=== PATIENT | male | born 1940 | race Caucasian/White ===

== ENCOUNTER 2022-07-20 21:03 | Inpatient (IN) | payer MEDICARE, BC ==
[~2022-07-20] VITALS: Ht 182.9 cm; Wt 89.4 kg
[2022-07-20 22:50] VITALS: BP 112/71
--- NOTE | 2022-07-20 23:50 | NUR ---
Admitted patient from [facility], in our Tele floor under the care of Dr Elliott, patient alert oriented, able to answer all admission question, no sob no chest pain, tele monitor sinus tachy 105, room air, elder cath patent draining with yellow color urine in moderate amount, iv heploc on left forearm, skin intact, no complain of pain, cont to monitor.
[2022-07-21] MEDS ORDERED: MELATONIN 3 MG TABLET PO PRN (00:30)
[2022-07-21] MEDS ORDERED: ONDANSETRON 4 MG/2 ML VIAL IV PRN (00:30)
[2022-07-21] MEDS ORDERED: DOCUSATE SODIUM 100 MG CAPSULE PO PRN (00:30)
[2022-07-21] MEDS ORDERED: MAGNESIUM HYDROXIDE 30 ML LIQUID UDC PO PRN (00:30)
[2022-07-21] MEDS ORDERED: PIPERACILLIN/TAZOBACTAM/D5W 50 ML IV ONE (01:06)
[2022-07-21 01:13] LABS: HEMATOCRIT 43.9 % (36.7-47.1); MEAN CORPUSCULAR HEMOGLOBIN 29.4 uug (23.8-33.4); PLATELET COUNT (AUTO) 186 K/uL (152-348)
[2022-07-21] MEDS ORDERED: PIPERACILLIN SODIUM/TAZOBACTAM 3.375 G in IV DEXTROSE 5% 50 ML IV ONE (01:15)
[2022-07-21 01:48] LABS: CARBON DIOXIDE 25 mmol/L (21-32); CHLORIDE 105 mmol/L (98-107); CREATININE 3.6 mg/dL (0.6-1.3); GLUCOSE 172 mg/dL (74-106); POTASSIUM 3.7 mmol/L (3.5-5.1); UREA NITROGEN, BLOOD 58 mg/dL (7-18)
[2022-07-21] MEDS: ACETAMINOPHEN 325 MG TABLET PO PRN ×2 (01:49→05:57)
[2022-07-21 01:51] LABS: IRON, SERUM 20 ug/dL (50-175)
[2022-07-21 01:57] LABS: PHOSPHOROUS 4.1 mg/dL (2.5-4.9)
[2022-07-21 02:00] LABS: MAGNESIUM 1.9 mg/dL (1.8-2.4)
[2022-07-21 02:37] LABS: *BILIRUBIN,URIN NEGATIVE (NEGATIVE); *BLOOD, URINE 3+ (NEGATIVE); *CLARITY,URINE CLOUDY (CLEAR); *COLOR,URINE YELLOW (YELLOW); *KETONES,URINE NEGATIVE (NEGATIVE); *UROBILINOGEN,URINE 0.2 E.U./dl (NORMAL); LEUKOCYTE ESTERASE ,URINE 1+ (NEGATIVE); NITRITE, URINE NEGATIVE (NEGATIVE)
[2022-07-21 02:59] LABS: UGLUCOSE 3+ (NEGATIVE)
[2022-07-21 03:22] LABS: BACTERIA,URINE FEW /HPF (NONE SEEN); SQUAMOUS EPITHELIAL CELL,UR FEW /HPF (NONE SEEN)
[2022-07-21 03:38] LABS: RBC,URINE 50-80 /HPF (0-3); WBC,URINE 50-80 /HPF (0-3)
[2022-07-21 04:00] VITALS: BP 132/64
[2022-07-21 04:26] LABS: BILIRUBIN,DIRECT 0.5 mg/dL (0.0-0.2)
--- NOTE | 2022-07-21 06:40 | NUR ---
Patient has temp of 100.6 axillary given tylenol 650mg, plus cooling measures, elder cath patent draining with pale yellow urine in moderate amount, cont abx for uti, cont to monitor, sinus tachy on tele.
[2022-07-21 08:37] VITALS: BP 91/60
[2022-07-21] MEDS ORDERED: ASPIRIN 325 MG TABLET PO SCH (09:00)
[2022-07-21] MEDS ORDERED: ASPIRIN 81 MG TAB.CHEW PO SCH (09:00)
[2022-07-21] MEDS: ATENOLOL 25 MG TABLET PO SCH ×2 (09:10→17:14)
[2022-07-21] MEDS: FUROSEMIDE 20 MG TABLET PO SCH (09:11)
[2022-07-21 12:00] VITALS: BP 98/56
[2022-07-21] MEDS: PIPERACILLIN SODIUM/TAZOBACTAM 3.375 G in IV DEXTROSE 5% 100 ML IV SCH (13:00)
--- NOTE | 2022-07-21 13:21 | NUR ---
Dr Elliott made aware of patient one episode of V-Tach at this time order to monitor patient for now.
[2022-07-21] MEDS ORDERED: PIPERACILLIN SODIUM/TAZOBACTAM 3.375 G in IV DEXTROSE 5% 50 ML IV SCH (14:00)
[2022-07-21] MEDS ORDERED: ROSU10TA2 PO (14:55)
[2022-07-21] MEDS ORDERED: ALOG6.252 PO (14:55)
[2022-07-21] MEDS ORDERED: PREG225C7 PO (14:55)
[2022-07-21] MEDS ORDERED: OMEP40CA21 PO (14:55)
[2022-07-21] MEDS ORDERED: TICA90TA PO (14:55)
[2022-07-21] MEDS ORDERED: ASPI81TA31 PO (14:55)
[2022-07-21] MEDS ORDERED: MEMA5TAB42 PO (14:55)
[2022-07-21] MEDS ORDERED: CHOL1CRY2 MC (14:55)
[2022-07-21] MEDS ORDERED: METF-440 PO ×2 (14:55)
[2022-07-21 16:00] VITALS: BP 105/68
--- NOTE | 2022-07-21 19:28 | NUR ---
I called Ms Albright isaiah about metoprolol dose with no answer left voicemail to call back.
--- NOTE | 2022-07-21 19:30 | NUR ---
Received patient lying in bed. Appears weak and lethargic. Non-verbally responsive to tactile stimuli only. Keeps his eyes closed. In no apparent distress. No signs or symptoms of pain or SOB. PIV on left AC intact and patent. Costello catheter intact and draining via gravity. Safety measure initiated and call light within reached.
[2022-07-21 20:00] VITALS: BP_SYST 100; BP_SYST 120; BP_DIAS 53; BP_DIAS 54
[2022-07-21] MEDS: ATORVASTATIN 20 MG TABLET PO SCH (20:28)
--- NOTE | 2022-07-21 20:34 | NUR ---
Noted order for IVF, verify with Dr Elliott as patient is on a fluid restriction of 800ml per day. Dr Elliott with verbal order to discontinue fluid restriction. Order carried out.
[2022-07-21] MEDS ORDERED: FLUCONAZOLE 200 MG/100 ML PIGGYBACK ONE (20:39)
[2022-07-21] MEDS: IV NS 1000 ML 1,000 ML IV SCH (20:57)
[2022-07-21] MEDS: FLUCONAZOLE 200 MG/NS 100ML IV 200 MG in PREMIXED 1 EACH IV SCH (20:57)
[2022-07-22] VITALS: BP 90/50
[2022-07-22 04:22] VITALS: BP 93/49
--- NOTE | 2022-07-22 05:27 | NUR ---
No adverse effect noted from IV antibiotic. IVF infusing. NSR on tele with HR of 90/min. Costello catheter intact and draining via gravity. Needs anticipated to and met. Turned and reposition for comfort. Safety measure maintained and call light within reached.
[2022-07-22] MEDS: PANTOPRAZOLE SODIUM 40 MG TABLET.DR PO SCH (06:06)
[2022-07-22 07:16] LABS: HEMATOCRIT 38.3 % (36.7-47.1); MEAN CORPUSCULAR HEMOGLOBIN 29.9 uug (23.8-33.4); MEAN CORPUSCULAR VOLUME 88.8 fL (73.0-96.2); PLATELET COUNT (AUTO) 170 K/uL (152-348)
[2022-07-22 07:42] LABS: CARBON DIOXIDE 23 mmol/L (21-32); CHLORIDE 112 mmol/L (98-107); CREATININE 4.2 mg/dL (0.6-1.3); GLUCOSE 218 mg/dL (74-106); MAGNESIUM 2.3 mg/dL (1.8-2.4); PHOSPHOROUS 5.6 mg/dL (2.5-4.9); POTASSIUM 3.5 mmol/L (3.5-5.1); UREA NITROGEN, BLOOD 77 mg/dL (7-18)
[2022-07-22 08:00] VITALS: BP 92/55
[2022-07-22] MEDS: MEMANTINE HCL 5 MG TABLET PO SCH ×2 (08:57→17:12)
[2022-07-22] MEDS: FUROSEMIDE 20 MG TABLET PO SCH (08:57)
[2022-07-22] MEDS ORDERED: ASPIRIN 81 MG TAB.CHEW PO SCH (09:00)
[2022-07-22] MEDS: ATENOLOL 25 MG TABLET PO SCH ×2 (09:00→17:00)
[2022-07-22] MEDS ORDERED: METFORMIN HCL 500 MG TABLET PO SCH (09:00)
[2022-07-22] MEDS: LINAGLIPTIN 5 MG TABLET PO SCH (09:02)
[2022-07-22] MEDS: PREGABALIN 50 MG CAPSULE PO SCH ×2 (09:02→17:12)
[2022-07-22] MEDS: CHOLECALCIFEROL 1,000 UNIT TABLET PO SCH (09:02)
[2022-07-22] MEDS: SOD FERRIC GLUC COMPLX/SUCROSE 125 MG in IV NORMAL SALINE 100 ML IV SCH (10:45)
[2022-07-22] MEDS ORDERED: TICAGRELOR 90 MG TABLET PO SCH (11:00)
[2022-07-22] MEDS: PIPERACILLIN SODIUM/TAZOBACTAM 3.375 G in IV DEXTROSE 5% 100 ML IV SCH ×3 (12:05)
--- NOTE | 2022-07-22 14:18 | NUR ---
Received order from Dr. Elliott for nephrostomy tube placement. Blood thinners (Aspirin and Brilinta) are on hold due to procedure in AM.
[2022-07-22 16:00] VITALS: BP 93/60
[2022-07-22] MEDS ORDERED: ALBUMIN HUMAN 5% 250 ML IV ONE (17:00)
[2022-07-22] MEDS ORDERED: VANCOMYCIN IV 1,250 MG in IV DEXTROSE 5% 250 ML IV ONE (18:00)
--- NOTE | 2022-07-22 18:24 | NUR ---
Pt. is in bed and resting at this time. Compliance with the care given. All safety measure applied. All need attended and met. No c/o pain. No acute distress noted. Will keep monitoring the patient.
--- NOTE | 2022-07-22 19:25 | NUR ---
Pt is noted in bed responsive and can be forgetful with call light in reach and fall precautions in place as report is received from the off going nurse. Sinus Rhythm on the Tele monitor, Diminished Lungs sound with skin dry, warm and intact. Pt care continue with IVF and Antibiotic therapy in progress with Positive Blood Cultures and Pt will be NPO after Midline for possible XR-Nephrostomy Tube Placement in AM and he is S/O CTA Abdominal and Pelvis and he will be monitor closely.
[2022-07-22 20:00] VITALS: BP 91/61
[2022-07-22] MEDS: IV NS 1000 ML 1,000 ML IV SCH (20:30)
[2022-07-22] MEDS: ATORVASTATIN 20 MG TABLET PO SCH (20:41)
[2022-07-22] MEDS: FLUCONAZOLE 200 MG/NS 100ML IV 200 MG in PREMIXED 1 EACH IV SCH (20:41)
[2022-07-23] VITALS: BP_SYST 100; BP_SYST 91; BP_DIAS 60; BP_DIAS 61
--- NOTE | 2022-07-23 00:05 | NUR ---
Pt remain full code with call light in reach and fall precaution sin place as he is been turn and reposition Q2HRS for comfort. Pt is NPO for possible XR-Nephrostomy Tube placement in AM with IVF 0.9NS at 40ML/HR. Pt care continue.
[2022-07-23] MEDS: PIPERACILLIN SODIUM/TAZOBACTAM 3.375 G in IV DEXTROSE 5% 100 ML IV SCH ×3 (02:07→20:38)
[2022-07-23 04:00] VITALS: BP 99/66
--- NOTE | 2022-07-23 05:07 | NUR ---
Pt is sleeping after AM and wound care done with no S/S off distress as he remain full code and NPO with IVF therapy in progress for possible B-H-Gczutmzpfka Tube Placement these AM. Pt care continue .
[2022-07-23] MEDS: PANTOPRAZOLE SODIUM 40 MG TABLET.DR PO SCH (06:57)
[2022-07-23 07:09] LABS: HEMATOCRIT 40.5 % (36.7-47.1); MEAN CORPUSCULAR HEMOGLOBIN 29.7 uug (23.8-33.4); MEAN CORPUSCULAR VOLUME 89.4 fL (73.0-96.2); PLATELET COUNT (AUTO) 158 K/uL (152-348)
[2022-07-23 07:35] LABS: CARBON DIOXIDE 26 mmol/L (21-32); CHLORIDE 111 mmol/L (98-107); CREATININE 3.2 mg/dL (0.6-1.3); GLUCOSE 143 mg/dL (74-106); MAGNESIUM 2.2 mg/dL (1.8-2.4); PHOSPHOROUS 4.5 mg/dL (2.5-4.9); POTASSIUM 3.4 mmol/L (3.5-5.1); UREA NITROGEN, BLOOD 76 mg/dL (7-18)
--- NOTE | 2022-07-23 07:35 | NUR ---
Pt care continue as report is given to the AM receiving nurse.
[2022-07-23] MEDS: MEMANTINE HCL 5 MG TABLET PO SCH ×2 (08:28→17:16)
[2022-07-23] MEDS: PREGABALIN 50 MG CAPSULE PO SCH ×2 (08:28→17:16)
[2022-07-23] MEDS: CHOLECALCIFEROL 1,000 UNIT TABLET PO SCH (08:28)
[2022-07-23] MEDS: LINAGLIPTIN 5 MG TABLET PO SCH (08:28)
[2022-07-23] MEDS: FUROSEMIDE 20 MG TABLET PO SCH ×2 (08:28→08:34)
[2022-07-23] MEDS: ATENOLOL 25 MG TABLET PO SCH ×2 (08:35→17:17)
[2022-07-23] MEDS: SOD FERRIC GLUC COMPLX/SUCROSE 125 MG in IV NORMAL SALINE 100 ML IV SCH (09:48)
[2022-07-23] MEDS ORDERED: VANCOMYCIN IV 500 MG in IV DEXTROSE 5% 100 ML IV ONE (11:00)
[2022-07-23 12:00] VITALS: BP 101/69
[2022-07-23] MEDS ORDERED: POTASSIUM CHLORIDE 10 MEQ TAB.PRT.SR PO ONE (12:00)
--- NOTE | 2022-07-23 12:03 | NUR ---
Pt. has order for nephrostomy tube placement and according to Radiologist pt. needs to be 4 to 5 days off of blood thinners. Reported to Dr. Elliott and will keep the blood thinners on hold till further order from .
[2022-07-23] MEDS: POTASSIUM CHLORIDE 50 ML IV SCH ×3 (15:24→17:29)
[2022-07-23 16:00] VITALS: BP 102/61
--- NOTE | 2022-07-23 17:48 | NUR ---
Pt. has been stable through out the shift. Compliance with the care given. No c/o pain. Bed in low position. Yellow color urine noted in Costello cath bag. Will keep monitoring the patient.
--- NOTE | 2022-07-23 19:30 | NUR ---
Received patient lying in bed. Family at bedside. AAOx2-3. In no apparent distress. No signs or symptoms of pain or SOB. PIV on right hand intact and patent. IVF infusing. Costello catheter intact and draining via gravity. Safety measure initiated and call light within reached.
[2022-07-23 20:00] VITALS: BP 110/68
[2022-07-23] MEDS: FLUCONAZOLE 100 MG TABLET PO SCH (20:39)
[2022-07-23] MEDS: ATORVASTATIN 20 MG TABLET PO SCH (20:39)
[2022-07-23] MEDS: IV NS 1000 ML 1,000 ML IV SCH (20:42)
[2022-07-23] MEDS ORDERED: FLUCONAZOLE 200 MG/NS 100ML IV 100 MG in PREMIXED 1 EACH IV SCH (21:00)
[2022-07-24] VITALS: BP 104/67
[2022-07-24] MEDS: PIPERACILLIN SODIUM/TAZOBACTAM 3.375 G in IV DEXTROSE 5% 100 ML IV SCH ×3 (03:14→20:52)
[2022-07-24 04:00] VITALS: BP 98/65
--- NOTE | 2022-07-24 05:17 | NUR ---
No adverse reaction noted from IV antibiotic. IVF infusing. NSR on tele with HR of 63/min. Costello catheter intact and draining via gravity. Needs anticipated to and met. Safety measure maintained and call light within reached.
[2022-07-24] MEDS: PANTOPRAZOLE SODIUM 40 MG TABLET.DR PO SCH (06:11)
[2022-07-24 07:15] LABS: HEMATOCRIT 40.4 % (36.7-47.1); MEAN CORPUSCULAR HEMOGLOBIN 29.3 uug (23.8-33.4); MEAN CORPUSCULAR VOLUME 89.1 fL (73.0-96.2); PLATELET COUNT (AUTO) 132 K/uL (152-348)
[2022-07-24 07:35] LABS: CARBON DIOXIDE 24 mmol/L (21-32); CHLORIDE 108 mmol/L (98-107); CREATININE 2.4 mg/dL (0.6-1.3); GLUCOSE 141 mg/dL (74-106); PHOSPHOROUS 4.4 mg/dL (2.5-4.9); UREA NITROGEN, BLOOD 63 mg/dL (7-18)
[2022-07-24] MEDS: CHOLECALCIFEROL 1,000 UNIT TABLET PO SCH (08:58)
[2022-07-24] MEDS: LINAGLIPTIN 5 MG TABLET PO SCH (08:58)
[2022-07-24] MEDS: MEMANTINE HCL 5 MG TABLET PO SCH ×2 (08:58→17:03)
[2022-07-24] MEDS: PREGABALIN 50 MG CAPSULE PO SCH ×2 (08:59→17:03)
[2022-07-24] MEDS: FUROSEMIDE 20 MG TABLET PO SCH (08:59)
[2022-07-24] MEDS ORDERED: POTASSIUM CHLORIDE 20 MEQ TAB.PRT.SR PO ONE ×3 (09:00→18:00)
[2022-07-24] MEDS ORDERED: VANCOMYCIN IV 1,000 MG in IV DEXTROSE 5% 250 ML IV ONE (09:00)
[2022-07-24] MEDS: ATENOLOL 25 MG TABLET PO SCH ×2 (09:00→17:00)
--- NOTE | 2022-07-24 09:35 | NUR ---
Noted patient having low blood pressure of 95/60 and HR 72. Reported to Dr. Elliott. Atenolol was hold and received order to Give NS 500ml bolus. Orders followed and will keep monitoring the patient.
[2022-07-24] MEDS: SOD FERRIC GLUC COMPLX/SUCROSE 125 MG in IV NORMAL SALINE 100 ML IV SCH (10:27)
[2022-07-24] MEDS ORDERED: IV NORMAL SALINE 500 ML BAG IV ONE (11:00)
[2022-07-24] MEDS ORDERED: IV NORMAL SALINE 500 ML IV ONE (11:15)
[2022-07-24] MEDS: GLUCERNA SHAKE 237 ML CAN PO SCH ×2 (12:21→17:04)
[2022-07-24] MEDS ORDERED: POTASSIUM CHLORIDE 10 MEQ TAB.PRT.SR PO ONE (14:00)
--- NOTE | 2022-07-24 18:28 | NUR ---
Pt. noted to be stable through out the shift. No c/o pain. Pt. was kept clean and dry. All need attended and met. Noted. Yellow color urine noted in the Costello cath bag. Will keep monitoring the patient.
[2022-07-24 20:29] VITALS: BP 95/60
[2022-07-24] MEDS: ATORVASTATIN 20 MG TABLET PO SCH (20:53)
[2022-07-24] MEDS: FLUCONAZOLE 100 MG TABLET PO SCH (20:53)
[2022-07-24] MEDS: IV NS 1000 ML 1,000 ML IV SCH (20:53)
[2022-07-25 00:53] VITALS: BP 97/60
[2022-07-25] MEDS: PIPERACILLIN SODIUM/TAZOBACTAM 3.375 G in IV DEXTROSE 5% 100 ML IV SCH ×3 (04:26→20:38)
[2022-07-25 04:37] VITALS: BP 111/71
[2022-07-25 05:20] LABS: HEMATOCRIT 40.2 % (36.7-47.1); MEAN CORPUSCULAR HEMOGLOBIN 29.2 uug (23.8-33.4); MEAN CORPUSCULAR VOLUME 87.9 fL (73.0-96.2); PLATELET COUNT (AUTO) 132 K/uL (152-348)
[2022-07-25 05:51] LABS: CARBON DIOXIDE 24 mmol/L (21-32); CHLORIDE 110 mmol/L (98-107); CREATININE 1.9 mg/dL (0.6-1.3); GLUCOSE 126 mg/dL (74-106); MAGNESIUM 1.8 mg/dL (1.8-2.4); PHOSPHOROUS 3.1 mg/dL (2.5-4.9); POTASSIUM 3.4 mmol/L (3.5-5.1); UREA NITROGEN, BLOOD 48 mg/dL (7-18)
[2022-07-25] MEDS: PANTOPRAZOLE SODIUM 40 MG TABLET.DR PO SCH (06:05)
--- NOTE | 2022-07-25 08:00 | NUR ---
PT alert and oriented x 2/3 forgetful at times. Reorient pt to place. Bed alarm on - fall precaution implemented. Pt agreeable with plan of care. Aspiration precaution implemented. HOB elevated during breakfast. No coughing noted during feed. Pt is in no acute distress. Call light is within reach.
[2022-07-25] MEDS: MEMANTINE HCL 5 MG TABLET PO SCH ×2 (08:48→17:52)
[2022-07-25] MEDS: PREGABALIN 50 MG CAPSULE PO SCH ×2 (08:48→17:52)
[2022-07-25] MEDS: FUROSEMIDE 20 MG TABLET PO SCH (08:48)
[2022-07-25] MEDS: CHOLECALCIFEROL 1,000 UNIT TABLET PO SCH (08:48)
[2022-07-25] MEDS: LINAGLIPTIN 5 MG TABLET PO SCH (08:48)
[2022-07-25] MEDS: ATENOLOL 25 MG TABLET PO SCH ×2 (08:55→17:00)
[2022-07-25] MEDS: GLUCERNA SHAKE 237 ML CAN PO SCH ×3 (09:00→17:52)
[2022-07-25] MEDS ORDERED: VANCOMYCIN IV 1,000 MG in IV DEXTROSE 5% 250 ML IV ONE (09:00)
[2022-07-25 11:49] VITALS: BP 99/58
[2022-07-25] MEDS: SOD FERRIC GLUC COMPLX/SUCROSE 125 MG in IV NORMAL SALINE 100 ML IV SCH (11:55)
[2022-07-25] MEDS ORDERED: POTASSIUM CHLORIDE 20 MEQ TAB.PRT.SR PO ONE ×3 (12:00→20:00)
[2022-07-25 16:05] VITALS: BP 105/70
--- NOTE | 2022-07-25 18:00 | NUR ---
No fall noted. Fall precaution implemented.
[2022-07-25] MEDS: ATORVASTATIN 20 MG TABLET PO SCH (20:38)
[2022-07-25] MEDS: FLUCONAZOLE 100 MG TABLET PO SCH (20:38)
[2022-07-25 20:40] VITALS: BP 102/62
[2022-07-26 00:16] VITALS: BP 95/58
[2022-07-26] MEDS: PIPERACILLIN SODIUM/TAZOBACTAM 3.375 G in IV DEXTROSE 5% 100 ML IV SCH ×3 (03:57→20:14)
[2022-07-26 04:11] VITALS: BP 100/62
[2022-07-26] MEDS: PANTOPRAZOLE SODIUM 40 MG TABLET.DR PO SCH (06:34)
[2022-07-26 06:52] LABS: HEMATOCRIT 38.9 % (36.7-47.1); MEAN CORPUSCULAR HEMOGLOBIN 29.2 uug (23.8-33.4); MEAN CORPUSCULAR VOLUME 88.5 fL (73.0-96.2); PLATELET COUNT (AUTO) 121 K/uL (152-348)
[2022-07-26 07:27] LABS: CARBON DIOXIDE 24 mmol/L (21-32); CHLORIDE 108 mmol/L (98-107); CREATININE 1.8 mg/dL (0.6-1.3); GLUCOSE 145 mg/dL (74-106); MAGNESIUM 1.8 mg/dL (1.8-2.4); PHOSPHOROUS 2.7 mg/dL (2.5-4.9); POTASSIUM 3.7 mmol/L (3.5-5.1); UREA NITROGEN, BLOOD 38 mg/dL (7-18)
--- NOTE | 2022-07-26 07:29 | NUR ---
REPORT GIVEN TO BELTRAN HOMER
[2022-07-26] MEDS ORDERED: VANCOMYCIN IV 1,000 MG in IV DEXTROSE 5% 250 ML IV ONE (09:00)
[2022-07-26] MEDS: GLUCERNA SHAKE 237 ML CAN PO SCH ×3 (09:04→18:26)
[2022-07-26] MEDS: FUROSEMIDE 20 MG TABLET PO SCH (09:04)
[2022-07-26] MEDS: LINAGLIPTIN 5 MG TABLET PO SCH (09:04)
[2022-07-26] MEDS: MEMANTINE HCL 5 MG TABLET PO SCH ×2 (09:04→18:26)
[2022-07-26] MEDS: PREGABALIN 50 MG CAPSULE PO SCH ×2 (09:04→18:26)
[2022-07-26] MEDS: CHOLECALCIFEROL 1,000 UNIT TABLET PO SCH (09:04)
[2022-07-26] MEDS: ATENOLOL 25 MG TABLET PO SCH ×2 (09:07→17:00)
[2022-07-26] MEDS: IV NS 1000 ML 1,000 ML IV SCH (09:19)
[2022-07-26 11:27] VITALS: BP 96/62
[2022-07-26 15:16] VITALS: BP 101/64
--- NOTE | 2022-07-26 18:30 | NUR ---
CM set up pt for pick up operator @900 tomorrow as procedure for right nephostomy tube insertion to be done at [facility] @1000. Consent received. Pt is in no acute distress. Call light is within reach.
--- NOTE | 2022-07-26 19:30 | NUR ---
Received patient lying in bed. Asleep but arousable to verbal stimuli. In no apparent distress. No signs or symptoms of pain or SOB. NSR on tele with HR of 74/min. IV on right hand intact and patent. IVF infusing. Costello catheter intact and draining via gravity. Safety measure initiated and call light within reached.
[2022-07-26 20:00] VITALS: BP 108/61
[2022-07-26] MEDS: ATORVASTATIN 20 MG TABLET PO SCH (20:14)
[2022-07-26] MEDS: FLUCONAZOLE 200 MG TABLET PO SCH (20:14)
--- NOTE | 2022-07-26 22:53 | NUR ---
Telephone call from Dr Myers find out if patient already had nephrostomy tube insertion done. Informed that is is schedule for lorrie. Dr. Elliott with order to place patient NPO after midnight except medication. Order noted and will carry out.
[2022-07-27] VITALS: BP 92/65
[2022-07-27] MEDS: IV NS 1000 ML 1,000 ML IV PRN (02:00)
[2022-07-27] MEDS: PIPERACILLIN SODIUM/TAZOBACTAM 3.375 G in IV DEXTROSE 5% 100 ML IV SCH ×3 (03:45→23:10)
[2022-07-27 04:00] VITALS: BP 105/67
--- NOTE | 2022-07-27 05:33 | NUR ---
Slept through out the night. In no acute distress. No side effect noted from IV antibiotics. NSR on tele with Hr of 79/min. Costello catheter intact and draining via gravity. Needs assessed and attended to. Safety measure maintained and call light within reached.
[2022-07-27] MEDS: PANTOPRAZOLE SODIUM 40 MG TABLET.DR PO SCH (06:10)
[2022-07-27] MEDS: GLUCERNA SHAKE 237 ML CAN PO SCH ×3 (08:00→16:53)
--- NOTE | 2022-07-27 08:00 | NUR ---
RECEIVED PATIENT IN BED AWAKE ALERT AND ORIENTED PATIENT IS NOTHING BY MOUTH PENDING RIGHT NEPHROSTOMY TUBE INSERTION SCHEDULED THIS MORNING AT WHEELING.ON ROOM AIR WITH NO SHORTNESS OF BREATH MANCUSO CATH TO GRAVITY DRAINAGE.DENIES PAIN OR DISCOMFORTS AT THIS TIME.CALL LIGHT AND PERSONAL BELONGINGS ARE WITHIN EASY REACH MADE COMFORTABLE WILL CONTINUE TO OBSERVE.
[2022-07-27] MEDS: FUROSEMIDE 20 MG TABLET PO SCH (09:00)
[2022-07-27] MEDS: ATENOLOL 25 MG TABLET PO SCH ×2 (09:00→16:40)
[2022-07-27] MEDS ORDERED: VANCOMYCIN IV 1,000 MG in IV DEXTROSE 5% 250 ML IV ONE ×2 (09:00→14:00)
[2022-07-27] MEDS: PREGABALIN 50 MG CAPSULE PO SCH ×2 (09:00→16:39)
[2022-07-27] MEDS: MEMANTINE HCL 5 MG TABLET PO SCH ×2 (09:00→16:39)
[2022-07-27] MEDS: LINAGLIPTIN 5 MG TABLET PO SCH (09:00)
[2022-07-27] MEDS: CHOLECALCIFEROL 1,000 UNIT TABLET PO SCH (09:00)
--- NOTE | 2022-07-27 09:32 | NUR ---
PATIENT STILL NOT PICKED UP FOR HIS PROCEDURE CALLED AM KATE SPOKE WITH ZOË STATED THAT THE CREW IS IN THE [facility] REMINDED HER THAT THE DATA POWER CONSULTANT WAS SCHEDULED FOR 9AM.
--- NOTE | 2022-07-27 10:15 | NUR ---
PATIENT PICKED UP BY [facility] FOR SCHEDULED PROCEDURE TODAY IN SATISFACTORY CONDITION.
[2022-07-27 13:30] VITALS: BP 110/71
--- NOTE | 2022-07-27 13:30 | NUR ---
PATIENT RETURNED FROM [facility] BY AM WEST AWAKE ALERT AND ORIENTED PLACED INTO BED FIXED AND MADE COMFORTABLE TELE IS SR HE HAS A TUBE IN HIS RIGHT LATERAL POSTERIOR ASPECT WITH PINKISH FLUID DRAINAGE WITH DRY DRESSING INTACT LUNCH SERVED PATIENT IS EATING AT THIS TIME.
[2022-07-27 16:00] VITALS: BP 112/61
--- NOTE | 2022-07-27 16:57 | NUR ---
RESTING FAMILY AT THE BEDSIDE NEPHROSTOMY TUBE INTACT AND DRAINING NOT IN DISTRESS AT THIS TIME.
[2022-07-27 20:00] VITALS: BP 114/62
[2022-07-27] MEDS: FLUCONAZOLE 200 MG TABLET PO SCH (20:26)
[2022-07-27] MEDS: ATORVASTATIN 20 MG TABLET PO SCH (20:26)
--- NOTE | 2022-07-27 22:30 | NUR ---
Patient seen by Dr Elliott with new orders; continue to monitor; continue plan of care.
[2022-07-28] VITALS (11 sets, daily range): BP systolic 67–129; BP diastolic 35–84
[2022-07-28] MEDS: PANTOPRAZOLE SODIUM 40 MG TABLET.DR PO SCH (06:06)
[2022-07-28 07:07] LABS: HEMATOCRIT 37.8 % (36.7-47.1); MEAN CORPUSCULAR HEMOGLOBIN 28.7 uug (23.8-33.4); MEAN CORPUSCULAR VOLUME 87.9 fL (73.0-96.2); PLATELET COUNT (AUTO) 136 K/uL (152-348)
[2022-07-28 07:27] LABS: CARBON DIOXIDE 24 mmol/L (21-32); CHLORIDE 104 mmol/L (98-107); CREATININE 2.5 mg/dL (0.6-1.3); GLUCOSE 173 mg/dL (74-106); MAGNESIUM 1.8 mg/dL (1.8-2.4); PHOSPHOROUS 3.5 mg/dL (2.5-4.9); POTASSIUM 4.1 mmol/L (3.5-5.1); UREA NITROGEN, BLOOD 31 mg/dL (7-18)
--- NOTE | 2022-07-28 07:44 | NUR ---
RECEIVED PATIENT ASLEEP EASILY AROUSABLE ON ROUNDS ON ROOM AIR WITH NO SHORTNESS OF BREATH REMAIN ON IVF ORDERED WITH NO INFILTERATION ON SITE RIGHT NEPHROSTOMY TUBE IS INTACT WITH PINKISH DRAINAGE IN BAG F/C TO GRAVITY DRAINAGE MADE COMFORTABLE WILL CONTINUE TO OBSERVE.
[2022-07-28] MEDS: GLUCERNA SHAKE 237 ML CAN PO SCH ×3 (08:00→17:00)
[2022-07-28] MEDS: PIPERACILLIN SODIUM/TAZOBACTAM 3.375 G in IV DEXTROSE 5% 100 ML IV SCH ×3 (08:24→23:35)
[2022-07-28] MEDS: ATENOLOL 25 MG TABLET PO SCH (08:25)
[2022-07-28] MEDS: MEMANTINE HCL 5 MG TABLET PO SCH ×2 (08:25→17:20)
[2022-07-28] MEDS: CHOLECALCIFEROL 1,000 UNIT TABLET PO SCH (08:25)
[2022-07-28] MEDS: LINAGLIPTIN 5 MG TABLET PO SCH (08:25)
[2022-07-28] MEDS: PREGABALIN 50 MG CAPSULE PO SCH ×2 (08:26→17:20)
[2022-07-28] MEDS: FUROSEMIDE 20 MG TABLET PO SCH (08:34)
--- NOTE | 2022-07-28 09:30 | NUR ---
PATIENT IS SOMEWHAT SLEEPY BUT DOES OPEN EYES WHEN CALLED AND RESPONDS BUT WILL PROMPTLY FALL BACK ASLEEP ONLY TOOK FEW BITES OF APPLE SAUCE WITH HIS MEDICATIONS DENIES DISCOMFORTS NO SOB AT THIS TIME.
[2022-07-28] MEDS: TICAGRELOR 90 MG TABLET PO SCH ×2 (10:34→20:27)
[2022-07-28] MEDS: ASPIRIN 81 MG TAB.CHEW PO SCH (10:35)
--- NOTE | 2022-07-28 12:50 | NUR ---
NOTED BLOOD PRESSURE IS 74/45 PATIENT IS ASSYMPTOMATIC RESPONDS BUT WEAK PATIENT PLACED ON [place] POSITION FAMILY AT THE BEDSIDE CALLED AND SPOKE WITH DR BELTRAN WITH ORDERS.
[2022-07-28] MEDS ORDERED: IV NORMAL SALINE 500 ML IV ONE (13:00)
[2022-07-28] MEDS ORDERED: MISCELLANEOUS MED XX PRN (13:00)
--- NOTE | 2022-07-28 13:12 | NUR ---
500 ML OF NORMAL SALINE BOLUS GIVEN ORDERED 1411 5% ALBUMIN IN 250 ML GIVEN ORDERED.
[2022-07-28] MEDS ORDERED: ALBUMIN HUMAN 5% 250 ML IV ONE (13:45)
[2022-07-28] MEDS: IV NS 1000 ML 1,000 ML IV PRN (16:00)
[2022-07-28 16:27] LABS: *BILIRUBIN,URIN NEGATIVE (NEGATIVE); *BLOOD, URINE 3+ (NEGATIVE); *COLOR,URINE YELLOW (YELLOW); *KETONES,URINE NEGATIVE (NEGATIVE); *UROBILINOGEN,URINE 0.2 E.U./dl (NORMAL); LEUKOCYTE ESTERASE ,URINE 2+ (NEGATIVE); NITRITE, URINE NEGATIVE (NEGATIVE); UGLUCOSE NEGATIVE (NEGATIVE)
[2022-07-28 16:29] LABS: *CLARITY,URINE SLIGHTLY CLOUDY (CLEAR)
--- NOTE | 2022-07-28 16:30 | NUR ---
BLOOD PRESSURE IS 89/51 AT THIS TIME MORE AWAKE FLUIDS ENCOURAGED ORALLY.
[2022-07-28 17:01] LABS: RBC,URINE TNTC /HPF (0-3); SQUAMOUS EPITHELIAL CELL,UR FEW /HPF (NONE SEEN); WBC,URINE 50-80 /HPF (0-3); YEAST,URINE MODERATE /HPF (NONE SEEN)
--- NOTE | 2022-07-28 18:32 | NUR ---
DR BELTRAN HERE TO SEE PATIENT AWARE THAT FAMILY ELECTED DNR/DNI AND SIGNED THE POLST AND DOCUMENTED.
--- NOTE | 2022-07-28 18:50 | NUR ---
NEW ORDER NOTED TO INCREASE IVF TO 100 NS/HR AND NOTED
[2022-07-28] MEDS: FLUCONAZOLE 200 MG TABLET PO SCH (20:27)
[2022-07-28] MEDS: ATORVASTATIN 20 MG TABLET PO SCH (20:28)
[2022-07-28] MEDS ORDERED: NOREPINEPHRINE BITARTRATE 8 MG in IV NORMAL SALINE 242 ML IV PRN (21:00)
--- NOTE | 2022-07-28 21:00 | NUR ---
Pt's blood pressure has been low 60-70s systolic, referred to paramjit Degroot ordered Levophed and transfer pt to critical care. Report given to Kera GONG
--- NOTE | 2022-07-28 21:20 | NUR ---
BROUGHT FROM 3RD FLOOR BY BED, LETHARGIC, BUT EASILY AWAKENS
--- NOTE | 2022-07-28 21:57 | NUR ---
pt's TERELL GIBBS,, informed by RN that Anabel has been transferred to CCU for pressors.
[2022-07-28] MEDS: NOREPINEPHRINE BITARTRATE 8 MG in IV NORMAL SALINE 242 ML IV PRN (22:23)
[2022-07-29] VITALS (69 sets, daily range): BP systolic 79–145; BP diastolic 37–77
[2022-07-29] MEDS ORDERED: ACETAMINOPHEN 325 MG TABLET ONE (00:37)
[2022-07-29] MEDS: ACETAMINOPHEN 325 MG TABLET PO PRN (00:39)
[2022-07-29] MEDS: IV NS 1000 ML 1,000 ML IV PRN ×2 (03:45→14:12)
[2022-07-29 05:45] LABS: HEMATOCRIT 34.8 % (36.7-47.1); MEAN CORPUSCULAR HEMOGLOBIN 29.2 uug (23.8-33.4); MEAN CORPUSCULAR VOLUME 87.7 fL (73.0-96.2); PLATELET COUNT (AUTO) 146 K/uL (152-348)
[2022-07-29 06:01] LABS: CARBON DIOXIDE 20 mmol/L (21-32); CHLORIDE 104 mmol/L (98-107); CREATININE 2.9 mg/dL (0.6-1.3); GLUCOSE 191 mg/dL (74-106); MAGNESIUM 1.6 mg/dL (1.8-2.4); PHOSPHOROUS 3.4 mg/dL (2.5-4.9); POTASSIUM 3.2 mmol/L (3.5-5.1); UREA NITROGEN, BLOOD 35 mg/dL (7-18)
[2022-07-29] MEDS: PANTOPRAZOLE SODIUM 40 MG TABLET.DR PO SCH (06:56)
--- NOTE | 2022-07-29 07:15 | NUR ---
PATIENT TO BE PICKED UP FOR SCHEDULED EGD AT 0730.
--- NOTE | 2022-07-29 07:26 | NUR ---
REPORT GIVEN TO BELTRAN VALENTIN
--- NOTE | 2022-07-29 08:06 | NUR ---
PATIENT BEING PICKED UP AT THIS TIME FOR EGD.
[2022-07-29] MEDS: PIPERACILLIN SODIUM/TAZOBACTAM 3.375 G in IV DEXTROSE 5% 100 ML IV SCH ×3 (08:47→23:51)
[2022-07-29] MEDS: GLUCERNA SHAKE 237 ML CAN PO SCH ×3 (08:47→17:00)
[2022-07-29] MEDS: ASPIRIN 81 MG TAB.CHEW PO SCH (08:53)
[2022-07-29] MEDS: PREGABALIN 50 MG CAPSULE PO SCH ×2 (08:54→17:28)
[2022-07-29] MEDS: MEMANTINE HCL 5 MG TABLET PO SCH ×2 (08:54→16:52)
[2022-07-29] MEDS: FUROSEMIDE 20 MG TABLET PO SCH (08:54)
[2022-07-29] MEDS: CHOLECALCIFEROL 1,000 UNIT TABLET PO SCH (08:54)
[2022-07-29] MEDS: TICAGRELOR 90 MG TABLET PO SCH ×2 (08:56→20:40)
[2022-07-29] MEDS: LINAGLIPTIN 5 MG TABLET PO SCH (09:07)
[2022-07-29] MEDS: MAGNESIUM SULFATE/D5W 100 ML IV SCH ×4 (12:36→16:37)
[2022-07-29] MEDS ORDERED: VANCOMYCIN IV 1,000 MG in IV DEXTROSE 5% 250 ML IV ONE (13:00)
[2022-07-29] MEDS ORDERED: POTASSIUM CHLORIDE 20 MEQ TAB.PRT.SR PO ONE ×4 (13:00→19:15)
[2022-07-29] MEDS: NOREPINEPHRINE BITARTRATE 8 MG in IV NORMAL SALINE 242 ML IV PRN ×2 (17:43→19:18)
[2022-07-29 18:20] LABS: CARBON DIOXIDE 24 mmol/L (21-32); CHLORIDE 99 mmol/L (98-107); CREATININE 2.6 mg/dL (0.6-1.3); MAGNESIUM 2.4 mg/dL (1.8-2.4); PHOSPHOROUS 2.9 mg/dL (2.5-4.9); POTASSIUM 3.1 mmol/L (3.5-5.1); UREA NITROGEN, BLOOD 30 mg/dL (7-18)
[2022-07-29] MEDS ORDERED: DEXTROSE 50% 50 ML DISP.SYRIN IV PRN (19:15)
[2022-07-29 19:24] LABS: GLUCOSE 346 mg/dL (74-106)
[2022-07-29] MEDS: ATORVASTATIN 20 MG TABLET PO SCH (20:39)
[2022-07-29] MEDS: FLUCONAZOLE 200 MG TABLET PO SCH (20:39)
[2022-07-29] MEDS ORDERED: POTASSIUM CHLORIDE 20 MEQ TAB.PRT.SR ONE (20:45)
[2022-07-29] MEDS: BLOOD SUGAR DIAGNOSTIC 1 EACH STRIP VI SCH (21:40)
[2022-07-30] VITALS (47 sets, daily range): BP systolic 74–129; BP diastolic 44–86
[2022-07-30] MEDS: IV NS 1000 ML 1,000 ML IV PRN ×2 (00:28→10:38)
[2022-07-30] MEDS: PANTOPRAZOLE SODIUM 40 MG TABLET.DR PO SCH (06:14)
[2022-07-30] MEDS: BLOOD SUGAR DIAGNOSTIC 1 EACH STRIP VI SCH ×4 (06:30→21:39)
--- NOTE | 2022-07-30 07:30 | NUR ---
REPORT GIVEN TO BELTRAN ARORA
[2022-07-30] MEDS: GLUCERNA SHAKE 237 ML CAN PO SCH ×3 (08:19→17:48)
[2022-07-30] MEDS: PIPERACILLIN SODIUM/TAZOBACTAM 3.375 G in IV DEXTROSE 5% 100 ML IV SCH ×2 (08:24→16:16)
[2022-07-30] MEDS: INSULIN REGULAR, HUMAN 300 UNIT/3 ML VIAL SQ PRN ×4 (09:32→21:41)
[2022-07-30] MEDS: FUROSEMIDE 20 MG TABLET PO SCH (09:35)
[2022-07-30] MEDS: CHOLECALCIFEROL 1,000 UNIT TABLET PO SCH (09:35)
[2022-07-30] MEDS: ASPIRIN 81 MG TAB.CHEW PO SCH (09:36)
[2022-07-30] MEDS: PREGABALIN 50 MG CAPSULE PO SCH ×2 (09:36→17:00)
[2022-07-30] MEDS: MEMANTINE HCL 5 MG TABLET PO SCH ×2 (09:36→17:00)
[2022-07-30] MEDS: TICAGRELOR 90 MG TABLET PO SCH ×2 (09:36→21:25)
[2022-07-30] MEDS: LINAGLIPTIN 5 MG TABLET PO SCH (09:43)
[2022-07-30 11:43] LABS: HEMATOCRIT 32.6 % (36.7-47.1); MEAN CORPUSCULAR HEMOGLOBIN 29.4 uug (23.8-33.4); MEAN CORPUSCULAR VOLUME 89.4 fL (73.0-96.2); PLATELET COUNT (AUTO) 131 K/uL (152-348)
[2022-07-30] MEDS: ACETAMINOPHEN 325 MG TABLET PO PRN ×2 (11:54→17:56)
[2022-07-30 12:03] LABS: CARBON DIOXIDE 24 mmol/L (21-32); CHLORIDE 107 mmol/L (98-107); CREATININE 2.2 mg/dL (0.6-1.3); GLUCOSE 204 mg/dL (74-106); POTASSIUM 3.9 mmol/L (3.5-5.1); UREA NITROGEN, BLOOD 24 mg/dL (7-18)
[2022-07-30] MEDS: VANCOMYCIN IV 1,000 MG in IV DEXTROSE 5% 250 ML IV SCH (13:26)
[2022-07-30] MEDS: NOREPINEPHRINE BITARTRATE 8 MG in IV NORMAL SALINE 242 ML IV PRN (17:55)
--- NOTE | 2022-07-30 19:37 | NUR ---
Pt rec'd in bed awake easily arroused but lethargic. On Levophed at 0.01mcg Assessment complete Nephrostomy tube insitu with slightly pink drainage. Costello catheter insitu with clear yellow urine. breakfast taken Pt refusing meds.
[2022-07-30] MEDS: ATORVASTATIN 20 MG TABLET PO SCH (21:24)
[2022-07-30] MEDS: FLUCONAZOLE 200 MG TABLET PO SCH (21:24)
[2022-07-31] VITALS (30 sets, daily range): BP systolic 88–138; BP diastolic 50–79
[2022-07-31] MEDS: PIPERACILLIN SODIUM/TAZOBACTAM 3.375 G in IV DEXTROSE 5% 100 ML IV SCH ×4 (00:14→23:02)
[2022-07-31 05:13] LABS: HEMATOCRIT 33.2 % (36.7-47.1); MEAN CORPUSCULAR HEMOGLOBIN 29.2 uug (23.8-33.4); MEAN CORPUSCULAR VOLUME 88.3 fL (73.0-96.2); PLATELET COUNT (AUTO) 138 K/uL (152-348)
[2022-07-31 05:28] LABS: CARBON DIOXIDE 25 mmol/L (21-32); CHLORIDE 109 mmol/L (98-107); CREATININE 1.8 mg/dL (0.6-1.3); GLUCOSE 134 mg/dL (74-106); MAGNESIUM 1.6 mg/dL (1.8-2.4); PHOSPHOROUS 2.7 mg/dL (2.5-4.9); POTASSIUM 3.1 mmol/L (3.5-5.1); UREA NITROGEN, BLOOD 19 mg/dL (7-18)
[2022-07-31] MEDS: IV NS 1000 ML 1,000 ML IV PRN (07:09)
[2022-07-31] MEDS: PANTOPRAZOLE SODIUM 40 MG TABLET.DR PO SCH (07:11)
--- NOTE | 2022-07-31 08:32 | NUR ---
End of Shift Summary Pt recieved at 2030 from Day shift BELTRAN Bethea. Pt is alert and oriented. Mood is subdued. Face is covered with a blanket. Pt is interactive and despite reports to the contrary, patient agreed to take his PM medication. Pt is able to make his needs known. He was very cooperative with his care. Watched TV untill about 0100 and then went to sleep. Pt remains on levophed for blood pressure support. No sign of distress or any issues. Report endorsed to [facility] BELTRAN Mccarthy at 0710.
[2022-07-31] MEDS: BLOOD SUGAR DIAGNOSTIC 1 EACH STRIP VI SCH ×4 (08:53→21:00)
[2022-07-31] MEDS: GLUCERNA SHAKE 237 ML CAN PO SCH ×3 (08:57→17:52)
[2022-07-31] MEDS: MEMANTINE HCL 5 MG TABLET PO SCH ×2 (09:01→17:51)
[2022-07-31] MEDS: CHOLECALCIFEROL 1,000 UNIT TABLET PO SCH (09:01)
[2022-07-31] MEDS: ASPIRIN 81 MG TAB.CHEW PO SCH (09:01)
[2022-07-31] MEDS: FUROSEMIDE 20 MG TABLET PO SCH (09:02)
[2022-07-31] MEDS: PREGABALIN 50 MG CAPSULE PO SCH ×2 (09:02→17:51)
[2022-07-31] MEDS: TICAGRELOR 90 MG TABLET PO SCH ×2 (09:03→21:29)
[2022-07-31] MEDS: LINAGLIPTIN 5 MG TABLET PO SCH (10:15)
[2022-07-31] MEDS: INSULIN REGULAR, HUMAN 300 UNIT/3 ML VIAL SQ PRN (12:16)
[2022-07-31] MEDS ORDERED: MAGNESIUM SULFATE/D5W 100 ML IV SCH (13:00)
[2022-07-31] MEDS ORDERED: POTASSIUM CHLORIDE 20 MEQ TAB.PRT.SR PO ONE ×2 (13:00→16:00)
[2022-07-31] MEDS: VANCOMYCIN IV 1,000 MG in IV DEXTROSE 5% 250 ML IV SCH (13:10)
[2022-07-31] MEDS: MAGNESIUM SULFATE/D5W 100 ML IV SCH ×4 (15:21→19:20)
[2022-07-31] MEDS: POTASSIUM PHOSPHATE MM 15 MMOL in IV NORMAL SALINE 250 ML IV SCH ×2 (16:10→20:36)
[2022-07-31] MEDS: INSULIN REGULAR, HUMAN 300 UNITS/3 ML VIAL SQ PRN ×2 (18:00→22:19)
--- NOTE | 2022-07-31 20:30 | NUR ---
Patient stated he wants to ; reported to DR Elliott, at bedside.
[2022-07-31] MEDS: ATORVASTATIN 20 MG TABLET PO SCH (21:29)
[2022-07-31] MEDS: FLUCONAZOLE 200 MG TABLET PO SCH (21:32)
[2022-08-01] VITALS (23 sets, daily range): BP systolic 88–130; BP diastolic 52–77
[2022-08-01] MEDS: IV NS 1000 ML 1,000 ML IV PRN ×2 (01:27→16:57)
[2022-08-01 05:17] LABS: HEMATOCRIT 34.3 % (36.7-47.1); MEAN CORPUSCULAR HEMOGLOBIN 29.2 uug (23.8-33.4); MEAN CORPUSCULAR VOLUME 88.7 fL (73.0-96.2); PLATELET COUNT (AUTO) 148 K/uL (152-348)
[2022-08-01 05:26] LABS: CARBON DIOXIDE 25 mmol/L (21-32); CHLORIDE 108 mmol/L (98-107); CREATININE 1.8 mg/dL (0.6-1.3); GLUCOSE 110 mg/dL (74-106); MAGNESIUM 2.1 mg/dL (1.8-2.4); PHOSPHOROUS 5.7 mg/dL (2.5-4.9); POTASSIUM 3.5 mmol/L (3.5-5.1); UREA NITROGEN, BLOOD 13 mg/dL (7-18)
[2022-08-01] MEDS: BLOOD SUGAR DIAGNOSTIC 1 EACH STRIP VI SCH ×4 (07:30→21:00)
--- NOTE | 2022-08-01 08:02 | NUR ---
received pt in bed resting, sleeping and arousable, calm and cooperative this morning. Pt has nephrostomy tube on the left side and elder, both draining yellow urine. pt on room air, no shortness of breath, levo drip running at 0.01. a/o x3, IV sites patent, dressing in tact, no signs of infiltration. Bed low and locked position, call light and personal belongings within reach, will continue to monitor.
[2022-08-01] MEDS: CHOLECALCIFEROL 1,000 UNIT TABLET PO SCH (08:14)
[2022-08-01] MEDS: PANTOPRAZOLE SODIUM 40 MG TABLET.DR PO SCH (08:14)
[2022-08-01] MEDS: PREGABALIN 50 MG CAPSULE PO SCH ×2 (08:14→16:58)
[2022-08-01] MEDS: FUROSEMIDE 20 MG TABLET PO SCH (08:15)
[2022-08-01] MEDS: MEMANTINE HCL 5 MG TABLET PO SCH ×2 (08:15→16:58)
[2022-08-01] MEDS: ASPIRIN 81 MG TAB.CHEW PO SCH (08:15)
[2022-08-01] MEDS: LINAGLIPTIN 5 MG TABLET PO SCH (08:15)
[2022-08-01] MEDS: TICAGRELOR 90 MG TABLET PO SCH ×2 (08:17→20:20)
[2022-08-01] MEDS: GLUCERNA SHAKE 237 ML CAN PO SCH ×3 (08:17→16:58)
[2022-08-01] MEDS: PIPERACILLIN SODIUM/TAZOBACTAM 3.375 G in IV DEXTROSE 5% 100 ML IV SCH ×3 (08:17→23:05)
--- NOTE | 2022-08-01 12:30 | NUR ---
son at bedside, helping pt eat lunch, will continue to monitor.
[2022-08-01] MEDS: INSULIN REGULAR, HUMAN 300 UNITS/3 ML VIAL SQ PRN ×2 (13:02→17:09)
[2022-08-01] MEDS: VANCOMYCIN IV 1,000 MG in IV DEXTROSE 5% 250 ML IV SCH (13:02)
[2022-08-01] MEDS ORDERED: MIDODRINE HCL 5 MG TABLET PO PRN (13:30)
[2022-08-01] MEDS: POTASSIUM CHLORIDE 50 ML IV SCH ×2 (14:41→15:27)
[2022-08-01] MEDS: ACETAMINOPHEN 325 MG TABLET PO PRN (15:09)
[2022-08-01] MEDS: FLUCONAZOLE 200 MG TABLET PO SCH (20:20)
[2022-08-01] MEDS: ATORVASTATIN 20 MG TABLET PO SCH (20:20)
[2022-08-01] MEDS: INSULIN REGULAR, HUMAN 300 UNIT/3 ML VIAL SQ PRN (22:00)
[2022-08-02] VITALS (19 sets, daily range): BP systolic 90–112; BP diastolic 51–75
[2022-08-02] MEDS ORDERED: IV NORMAL SALINE 250 ML IV PRN
[2022-08-02 05:16] LABS: HEMATOCRIT 33.2 % (36.7-47.1); MEAN CORPUSCULAR HEMOGLOBIN 29.6 uug (23.8-33.4); MEAN CORPUSCULAR VOLUME 88.3 fL (73.0-96.2); PLATELET COUNT (AUTO) 132 K/uL (152-348)
[2022-08-02 05:33] LABS: CARBON DIOXIDE 26 mmol/L (21-32); CHLORIDE 106 mmol/L (98-107); CREATININE 1.7 mg/dL (0.6-1.3); GLUCOSE 128 mg/dL (74-106); MAGNESIUM 1.8 mg/dL (1.8-2.4); PHOSPHOROUS 3.6 mg/dL (2.5-4.9); UREA NITROGEN, BLOOD 13 mg/dL (7-18)
[2022-08-02] MEDS: PANTOPRAZOLE SODIUM 40 MG TABLET.DR PO SCH (07:25)
[2022-08-02] MEDS: IV NS 1000 ML 1,000 ML IV PRN ×2 (08:27→21:48)
[2022-08-02] MEDS: BLOOD SUGAR DIAGNOSTIC 1 EACH STRIP VI SCH ×4 (08:32→20:40)
[2022-08-02] MEDS: GLUCERNA SHAKE 237 ML CAN PO SCH ×3 (08:55→17:00)
[2022-08-02] MEDS: PIPERACILLIN SODIUM/TAZOBACTAM 3.375 G in IV DEXTROSE 5% 100 ML IV SCH (08:55)
[2022-08-02] MEDS: ASPIRIN 81 MG TAB.CHEW PO SCH (09:09)
[2022-08-02] MEDS: FUROSEMIDE 20 MG TABLET PO SCH (09:10)
[2022-08-02] MEDS: PREGABALIN 50 MG CAPSULE PO SCH ×2 (09:10→17:01)
[2022-08-02] MEDS: MEMANTINE HCL 5 MG TABLET PO SCH ×2 (09:10→17:01)
[2022-08-02] MEDS: LINAGLIPTIN 5 MG TABLET PO SCH (09:11)
[2022-08-02] MEDS: CHOLECALCIFEROL 1,000 UNIT TABLET PO SCH (09:15)
[2022-08-02] MEDS: TICAGRELOR 90 MG TABLET PO SCH ×2 (09:30→20:42)
[2022-08-02] MEDS: INSULIN REGULAR, HUMAN 300 UNIT/3 ML VIAL SQ PRN ×2 (12:00→17:00)
--- NOTE | 2022-08-02 16:20 | NUR ---
A return call from attending physician Dr. Elliott retuning call from [phone] He was called as requested by nursing commercial instructor supervisor. informed that pt. is off levophed for more than 12 hours and on/off He has low readings of sbp that go back to normal when recycle. informed that pt. is on NSR and being afebrile, AAOx4. with SBP within desired limits for most of the shift. Orders to down-grade pt. to telemetry status received.
--- NOTE | 2022-08-02 17:02 | NUR ---
Patient refusing to take glucerna vanilla called kitchen to obtain a chocolate glucerna I was informed there is no stuck of chocolate glucerna.
--- NOTE | 2022-08-02 19:30 | NUR ---
Patient transferred to tele unit from ICU at 1815 per CCU BELTRAN Wang. Received patient AAOx3-4. Family at bedside. Appears calm and pleasant. In no apparent distress. Denies any pain or SOB. PIV on left AC and left FA intact and patent as well as midline on left upper arm. IV infusing to midline. NSR on tele with HR of 87/min. Nephrostomy tube on right side intact and draining. Costello catheter intact and draining via gravity. Safety measure initiated and call light within reached.
[2022-08-02] MEDS ORDERED: FLUCONAZOLE 100 MG TABLET ONE (20:35)
[2022-08-02] MEDS ORDERED: ATROPINE SULFATE 1% OPHT DROP 2 ML ONE (20:35)
[2022-08-02] MEDS: FLUCONAZOLE 200 MG TABLET PO SCH (20:42)
[2022-08-02] MEDS: ATORVASTATIN 20 MG TABLET PO SCH (20:42)
[2022-08-03 00:12] VITALS: BP 103/68
[2022-08-03 04:22] VITALS: BP 102/62
--- NOTE | 2022-08-03 05:30 | NUR ---
Slept well through out the night. SR on tele with HR of 90/min. Nephrostomy and Costello catheter intact and draining. Needs attended to and met. Safety measure maintained and call light within reached.
[2022-08-03] MEDS: PANTOPRAZOLE SODIUM 40 MG TABLET.DR PO SCH (06:04)
[2022-08-03] MEDS: BLOOD SUGAR DIAGNOSTIC 1 EACH STRIP VI SCH ×4 (06:31→20:31)
[2022-08-03 07:52] LABS: HEMATOCRIT 33.5 % (36.7-47.1); MEAN CORPUSCULAR HEMOGLOBIN 29.4 uug (23.8-33.4); MEAN CORPUSCULAR VOLUME 89.1 fL (73.0-96.2); PLATELET COUNT (AUTO) 150 K/uL (152-348)
[2022-08-03] MEDS: PREGABALIN 50 MG CAPSULE PO SCH ×2 (08:18→16:10)
[2022-08-03] MEDS: MEMANTINE HCL 5 MG TABLET PO SCH ×2 (08:18→16:10)
[2022-08-03] MEDS: ASPIRIN 81 MG TAB.CHEW PO SCH (08:18)
[2022-08-03] MEDS: TICAGRELOR 90 MG TABLET PO SCH ×2 (08:18→20:32)
[2022-08-03] MEDS: GLUCERNA SHAKE 237 ML CAN PO SCH ×3 (08:18→16:10)
[2022-08-03] MEDS: FUROSEMIDE 20 MG TABLET PO SCH (08:18)
[2022-08-03] MEDS: CHOLECALCIFEROL 1,000 UNIT TABLET PO SCH (08:18)
[2022-08-03] MEDS: LINAGLIPTIN 5 MG TABLET PO SCH (08:18)
[2022-08-03 08:49] LABS: CARBON DIOXIDE 29 mmol/L (21-32); CHLORIDE 106 mmol/L (98-107); CREATININE 1.8 mg/dL (0.6-1.3); GLUCOSE 114 mg/dL (74-106); MAGNESIUM 1.6 mg/dL (1.8-2.4); PHOSPHOROUS 3.4 mg/dL (2.5-4.9); POTASSIUM 3.5 mmol/L (3.5-5.1); UREA NITROGEN, BLOOD 13 mg/dL (7-18)
[2022-08-03] MEDS: MAGNESIUM SULFATE/D5W 100 ML IV SCH ×2 (09:34→10:19)
[2022-08-03] MEDS ORDERED: POTASSIUM CHLORIDE 20 MEQ TAB.PRT.SR PO ONE (10:00)
[2022-08-03] MEDS: INSULIN REGULAR, HUMAN 300 UNIT/3 ML VIAL SQ PRN (11:27)
[2022-08-03 12:34] VITALS: BP 105/66
[2022-08-03] MEDS: IV NS 1000 ML 1,000 ML IV PRN (13:34)
[2022-08-03] MEDS ORDERED: DEXT50DI8 IV (14:15)
[2022-08-03] MEDS ORDERED: PREG50CA PO (14:15)
[2022-08-03] MEDS ORDERED: MELA3TAB41 PO (14:15)
[2022-08-03] MEDS ORDERED: TICA90TA PO (14:15)
[2022-08-03] MEDS ORDERED: ATOR20TA PO (14:15)
[2022-08-03] MEDS ORDERED: NORM50IV2 IV (14:15)
[2022-08-03] MEDS ORDERED: ACET325T53 PO (14:15)
[2022-08-03] MEDS ORDERED: DOCU-141 PO (14:15)
[2022-08-03] MEDS ORDERED: ASPI81TA31 PO (14:15)
[2022-08-03] MEDS ORDERED: [UNRECOGNIZED DRUG - OTHER] XX (14:15)
[2022-08-03] MEDS ORDERED: FLUC200T PO (14:15)
[2022-08-03] MEDS ORDERED: ONDA4VIA23 PO (14:15)
[2022-08-03] MEDS ORDERED: MIDO5TAB4 PO (14:15)
[2022-08-03] MEDS ORDERED: NUT.237L36 PO (14:15)
[2022-08-03] MEDS ORDERED: FURO20TA4 PO (14:15)
[2022-08-03] MEDS ORDERED: INSU100V28 SQ ×2 (14:15)
[2022-08-03] MEDS ORDERED: MAGN400O6 PO (14:15)
[2022-08-03 16:01] VITALS: BP 102/68
[2022-08-03 20:10] VITALS: BP 114/68
[2022-08-03] MEDS: FLUCONAZOLE 200 MG TABLET PO SCH (20:31)
[2022-08-03] MEDS: ATORVASTATIN 20 MG TABLET PO SCH (20:31)
--- NOTE | 2022-08-03 21:24 | NUR ---
Received patient lying in bed. Asleep but arouse to verbal stimuli. AOx3-4. Son at bedside. In no acute distress. Denies any pain or SOB. PIV on left AC and left FA and midline on left UA intact and patent. IV infusing to midline. NSR on tele with HR of 89/min. Nephrostomy tube on right side intact and draining. Costello catheter intact and draining via gravity. Safety measure initiated and call light within reached.
[2022-08-04 00:05] VITALS: BP 132/74
[2022-08-04 04:15] VITALS: BP 110/67
[2022-08-04] MEDS: IV NS 1000 ML 1,000 ML IV PRN (04:44)
--- NOTE | 2022-08-04 05:18 | NUR ---
Slept well through out the night. SR on tele with HR of 82/min. IVF continue to infuse. Nephrostomy and Costello catheter intact and draining. Needs attended to and met. Safety measure maintained and call light within reached.
[2022-08-04] MEDS: PANTOPRAZOLE SODIUM 40 MG TABLET.DR PO SCH (06:04)
[2022-08-04] MEDS: BLOOD SUGAR DIAGNOSTIC 1 EACH STRIP VI SCH ×2 (06:38→11:22)
[2022-08-04 07:38] LABS: CARBON DIOXIDE 28 mmol/L (21-32); CHLORIDE 104 mmol/L (98-107); CREATININE 1.7 mg/dL (0.6-1.3); GLUCOSE 96 mg/dL (74-106); MAGNESIUM 1.8 mg/dL (1.8-2.4); PHOSPHOROUS 3.2 mg/dL (2.5-4.9); POTASSIUM 3.6 mmol/L (3.5-5.1); UREA NITROGEN, BLOOD 13 mg/dL (7-18)
[2022-08-04 07:40] LABS: HEMATOCRIT 33.6 % (36.7-47.1); MEAN CORPUSCULAR HEMOGLOBIN 29.9 uug (23.8-33.4); MEAN CORPUSCULAR VOLUME 88.8 fL (73.0-96.2); PLATELET COUNT (AUTO) 154 K/uL (152-348)
--- NOTE | 2022-08-04 08:00 | NUR ---
AWAKE ALERT AND ORIENTED X3 DENIES PAIN OR SS OF DISTRESS. WITH CONTINUOUS IVF AT 75MLS/HR. PLAN DISCHARGE TO [facility]. AWAITING APPROVAL FROM FAMILY
[2022-08-04] MEDS: TICAGRELOR 90 MG TABLET PO SCH (08:52)
[2022-08-04] MEDS: GLUCERNA SHAKE 237 ML CAN PO SCH ×2 (08:53→11:23)
[2022-08-04] MEDS: PREGABALIN 50 MG CAPSULE PO SCH (08:53)
[2022-08-04] MEDS: LINAGLIPTIN 5 MG TABLET PO SCH (08:53)
[2022-08-04] MEDS: ASPIRIN 81 MG TAB.CHEW PO SCH (08:53)
[2022-08-04] MEDS: MEMANTINE HCL 5 MG TABLET PO SCH (08:53)
[2022-08-04] MEDS: FUROSEMIDE 20 MG TABLET PO SCH (08:53)
[2022-08-04] MEDS: CHOLECALCIFEROL 1,000 UNIT TABLET PO SCH (08:53)
[2022-08-04] MEDS: INSULIN REGULAR, HUMAN 300 UNIT/3 ML VIAL SQ PRN (11:30)
[2022-08-04 11:43] VITALS: BP 101/60
--- NOTE | 2022-08-04 12:00 | NUR ---
NO ACUTE CHANGE FROM MORNING ASSESSMENT, CONTINUE WITH PHYSICAL THERAPY ORDERED.
--- NOTE | 2022-08-04 13:30 | NUR ---
SPOKE WITH DR ANTHONY AND SAID OKAY TO GO TO [facility].
--- NOTE | 2022-08-04 14:22 | NUR ---
REPORT GIVEN TO JACEY AT [facility]. PATIENT TO GO IN RM 22-C
--- NOTE | 2022-08-04 15:34 | NUR ---
PATIENT WAS PICK-UP BY AMBULANCE WITH REPORT
== END 2022-08-04 15:50 | DRG 871 ==
LOC: TELE3 22:46 → TRANSITION 07-28 21:19 → CCU 07-29 08:38 → TELE3 08-02 18:20
PROVIDERS: ADMIT Internal Medicine; ATTEND Internal Medicine
PROC: 0T9030Z Drainage of Right Kidney with Drainage Device, Percutaneous Approach (ICD-10-PCS; 2022-07-27)
PROC: 05H633Z Insertion of Infusion Device into Left Subclavian Vein, Percutaneous Approach (ICD-10-PCS; principal; 2022-07-31)
PROC: B547ZZA Ultrasonography of Left Subclavian Vein, Guidance (ICD-10-PCS; 2022-07-31)
DX: B37.7 Candidal sepsis (principal); G93.41 Metabolic encephalopathy; N17.0 Acute kidney failure with tubular necrosis; N13.6 Pyonephrosis; B37.49 Other urogenital candidiasis; R65.20 Severe sepsis without septic shock; D50.9 Iron deficiency anemia, unspecified; G89.29 Other chronic pain; Z20.822 Contact with and (suspected) exposure to COVID-19; I25.10 Atherosclerotic heart disease of native coronary artery without angina pectoris; K21.9 Gastro-esophageal reflux disease without esophagitis; E78.5 Hyperlipidemia, unspecified; F03.90 Unspecified dementia, unspecified severity, without behavioral disturbance, psychotic disturbance, mood disturbance, and anxiety; Z79.82 Long term (current) use of aspirin; Z79.84 Long term (current) use of oral hypoglycemic drugs; Z87.440 Personal history of urinary (tract) infections; Z87.442 Personal history of urinary calculi; I11.0 Hypertensive heart disease with heart failure; I50.9 Heart failure, unspecified; E11.9 Type 2 diabetes mellitus without complications
CPT/HCPCS: 36415; 71045; 83550; 83605; 83735; 84100; 84484; 85025; 85610; 85730; 87040; 93005; A4663; A6209; G0378; J1450; J1815; J2543; J2916; J3370; J3475; J3480; J3490; J7040; J7050; P9045